=== PATIENT | male | born 1935 | race African-American/Black ===

== ENCOUNTER → 2020-01-06 | Outpatient (CLI) | payer MEDICARE, OTHER ==
[2020-01-07 14:14] LABS: KAPPA FREE 40.4 mg/L (3.3-19.4); KAPPA LAMBDA RATIO 3.51 (0.26-1.65); LAMBDA FREE 11.5 mg/L (5.7-26.3)
[2020-01-07 20:09] LABS: ALBUM 3.4 g/dL (2.9-4.4); ALPHA 1 0.3 g/dL (0.0-0.4); ALPHA 2 0.8 g/dL (0.4-1.0); BETA 0.9 g/dL (0.7-1.3); GAMMA 0.9 g/dL (0.4-1.8); PROTEIN TOTAL 6.2 g/dL (6.0-8.5); SPEP AG RATIO 1.2 (0.7-1.7)
== END ==
LOC: ONCLAB 16:08
PROVIDERS: ATTEND Internal Medicine Hematology & Oncology
DX: E83.52 Hypercalcemia (principal)
CPT/HCPCS: 36415; 83520; 84165

== ENCOUNTER → 2020-05-22 | Outpatient (CLI) | payer OTHER, MEDICARE ==
--- NOTE | 2020-05-22 19:30 | RAD ---
EXAMINATION: RIGHT LOWER EXTREMITY - UNILATERAL VENOUS DOPPLER. Technique: Ultrasound evaluation of the right lower extremity was performed from the groin to the upp er calf with welch scale, spectral and color doppler evaluation. Indication: Leg swelling Comparison: None Findings: There is normal venous flow and compressibility of right common femoral vein, femoral vein, popliteal vein, and visualized proximal calf veins. Edema about the right lower leg. Impression: No evidence for deep vein thrombosis of right lower extremity from the level of the calf veins to the groins. Electronically signed by: Bean Kessler MD (05/22/2020 7:28 PM) [facility]
== END ==
LOC: US 17:34
DX: R22.41 Localized swelling, mass and lump, right lower limb (principal)
CPT/HCPCS: 93971